=== PATIENT | male | born 1925 | race Caucasian/White ===

== ENCOUNTER 2016-07-22 16:37 | Emergency (ER) | payer MEDICARE, OTHER ==
[2016-07-22 13:41] LABS: BASOPHILS 0.2 %; BASOPHILS ABSOLUTE 0.02 10/3/uL (0.0-0.16); EOSINOPHILS 0.5 %; EOSINOPHILS ABSOLUTE 0.05 10/3/uL (0.0-0.53); ER CBC TAT 0 Hrs 03 Mins; HEMATOCRIT 27.1 % (40.0-51.0); HEMOGLOBIN 9.1 g/dL (13.6-17.8); IMMATURE GRANULOCYTES 0.6 %; IMMATURE GRANULOCYTES ABSOLUTE 0.06 10/3/uL (0.0-0.11); LYMPHOCYTES 16.5 %; LYMPHOCYTES ABSOLUTE 1.56 10/3/uL (0.67-4.30); MEAN CORPUS HGB CONC 33.6 g/dL (32.0-36.0); MEAN CORPUSCULAR HEMOGLOB 32.5 pg (26.0-34.0); MEAN CORPUSCULAR VOLUME 96.8 fL (80-100); MEAN PLATELET VOLUME 10.4 fL (9.2-13.0); MONOCYTES 7.9 %; MONOCYTES ABSOLUTE 0.75 10/3/uL (0.21-1.20); NEUTROPHILS 74.3 %; NEUTROPHILS ABSOLUTE 7.02 10/3/uL (2.02-8.40); PLATELET COUNT 126 10/3/uL (150-400); RBC DISTRIBUTION WIDTH 13.4 % (12.0-16.0); WHITE BLOOD CELLS 9.5 10/3/uL (4.5-10.5)
[2016-07-22 13:42] LABS: MANUAL DIFF NO %
[2016-07-22 13:50] LABS: INTERNATIONAL NORMAL RATI 1.5 UNITS (-); PROTIME (NOT ORD) 18.1 SEC (12.0-14.5)
[2016-07-22 13:57] LABS: CHEST PAIN PROFILE TAT 0 Hrs 19 Mins; CHLORIDE, SERUM 107 MMOL/L (96-112); CO2 (CARBON DIOXIDE) 20 MMOL/L (24-34); POTASSIUM, SERUM 5.7 MMOL/L (3.5-5.3); SODIUM, SERUM 137 MMOL/L (135-148); TROPONIN I 0.03 NG/ML (<0.05)
[2016-07-22 13:58] LABS: BUN (BLOOD UREA NITROGEN) 75 MG/DL (6-23); CREATININE 2.67 MG/DL (0.70-1.30); GFR AFRICAN AMERICAN 23 ML/MIN (>=60); GFR NON AFRICAN AMERICAN 20 ML/MIN (>=60); GLUCOSE, SERUM 256 MG/DL (60-99)
[~2016-07-22 16:37] MED LIST: COLESTID1 GM OR; COLESTIPOL1 GM PO; COZ50 PO; DIABETA5 PO; EYE VITAMIN PO; FOLIC PO; HYT5 PO; KLOR-CON 1010 MEQ PO; L20 PO; MICRONASE5 MG PO; MULTIVITAMI1 PO; PRESERVISION A1 EAC1 PO; PREV30 PO; PROSCAR5 PO; VITAMIN C100 MG PO; [UNRECOGNIZED DRUG - OTHER] PO
[2016-07-22 20:41] LABS: DIRECT BILIRUBIN 0.2 MG/DL (0.0-0.4); INDIRECT BILIRUBIN(NOT ORDER) 0.2 MG/DL (0.1-0.9); SGOT(AST) 32 U/L (5-40); SGPT(ALT) 29 U/L (5-65); TOTAL BILIRUBIN 0.4 MG/DL (0-1.2); TOTAL PROTEIN 7.1 G/DL (6.0-8.5)
[2016-07-22 20:42] LABS: ALKALINE PHOSPHATASE 82 U/L (45-117)
[2016-09-06] MEDS ORDERED: ZAROX2.5B PO (17:38)
[2016-09-06] MEDS ORDERED: COREG6 PO (17:39)
== END 2016-07-22 21:45 | disposition home or self-care (01) ==
LOC: ER 16:37
PROVIDERS: Emergency Medicine
DX: R14.2 Eructation (principal); K29.80 Duodenitis without bleeding; D64.9 Anemia, unspecified; R60.9 Edema, unspecified; N18.9 Chronic kidney disease, unspecified; I12.9 Hypertensive chronic kidney disease with stage 1 through stage 4 chronic kidney disease, or unspecified chronic kidney disease; Z79.899 Other long term (current) drug therapy
CPT/HCPCS: 71020; 74176; 80048; 80076; 83690; 83735; 84484; 85025; 85610; 85730; 93005; 99285